=== PATIENT | male | born 1950 | race Caucasian/White ===

== ENCOUNTER 2023-01-01 14:30 | Inpatient (IN) | payer OTHER, MEDICAID ==
[~2023-01-01] VITALS: Ht 180.3 cm; Wt 84.8 kg
[~2023-01-01 14:30] MED LIST: EMPA1TAB5 PO; GLIP10TA21 PO; REPA2TAB PO; SEMA7TAB2; SIMV-345 PO
[2023-01-01 14:45] VITALS: BP_SYST 137; PULSE 63; RESP 18; TEMP 98.3; O2SAT 97
[2023-01-01 15:45] LABS: BASOPHILS # (AUTO) 0.1 K/uL (0.0-0.2); BASOPHILS % (AUTO) 0.7 % (0.0-2.0); EOSINOPHILS # (AUTO) 0.2 K/uL (0.0-0.4); EOSINOPHILS % (AUTO) 2.1 % (0.0-4.0); HEMATOCRIT 43.2 % (36-54); LYMPHOCYTES # (AUTO) 2.2 K/uL (1.0-5.5); LYMPHOCYTES % (AUTO) 27.9 % (20.5-51.5); MEAN CORPUSCULAR HEMOGLOBIN 30 pg (27-31); MEAN CORPUSCULAR HGB CONC 32 % (32-36); MEAN CORPUSCULAR VOLUME 91 fL (79.0-98.0); MONOCYTES # (AUTO) 0.6 K/uL (0.0-1.0); MONOCYTES % (AUTO) 7.9 % (1.7-9.3); NEUTROPHILS # (AUTO) 4.9 K/uL (1.8-7.7); NEUTROPHILS % (AUTO) 61.4 % (40.0-70.0); PLATELET COUNT (AUTO) 221 K/uL (130-430); RED BLOOD CELL COUNT(AUTO) 4.73 MIL/uL (4.2-6.2); RED CELL DISTRIBUTION WIDTH 14.4 % (9.0-15.0); WHITE BLOOD COUNT (AUTO) 7.9 K/uL (4.8-10.8)
[2023-01-01] MEDS ORDERED: ASPIRIN 81 MG TABLET(ECOTRIN) PO ONE (15:45)
[2023-01-01 15:51] LABS: ANION GAP 9 (5-15); CALCIUM 9.2 mg/dL (8.4-11.0); CHLORIDE 100 mmol/L (98-107); CREATININE 1.48 mg/dL (0.55-1.30); GLUCOSE 106 mg/dL (74-106); UREA NITROGEN, BLOOD 30 mg/dL (8-21)
[2023-01-01 15:57] LABS: GFR AFRICAN AMERICAN 60 mL/min (>90)
[2023-01-01 15:58] LABS: ALANINE AMINOTRANSFERASE 16 U/L (12-78); ASPARTATE AMINOTRANSFERASE 14 U/L (10-37)
[2023-01-01 16:01] LABS: PROTHROMBIN TIME 10.4 SECS (9.5-12.5)
[2023-01-01] MEDS ORDERED: HYDR-4039 PO (16:26)
[2023-01-01] MEDS ORDERED: LOSA1TAB40 PO (16:26)
[2023-01-01] MEDS ORDERED: METO-442 PO (16:26)
[2023-01-01] MEDS ORDERED: HYDROcodone/ACETAMIN 5-325 MG TAB (NORCO/ VICODIN) PO PRN (23:30)
[2023-01-01] MEDS ORDERED: ONDANSETRON HCL 4 MG/2 ML VIAL IVP PRN (23:30)
[2023-01-01] MEDS ORDERED: LORazepam 2 MG/ML VIAL IVP PRN (23:30)
[2023-01-01] MEDS ORDERED: ACETAMINOPHEN 325 MG TABLET PO PRN (23:30)
[2023-01-01] MEDS ORDERED: NALOXONE HCL 0.4 MG/ML AMP (NARCAN) IVP PRN ×2 (23:30)
[2023-01-01] MEDS ORDERED: HYDROcodone/ACETAMIN 10-325 MG TAB PO PRN (23:30)
[2023-01-02] VITALS (8 sets, daily range): BP systolic 105–163; PULSE 54–69; RESP 17–18; TEMP 96.7–98.3; O2SAT 97–99
[2023-01-02 05:38] LABS: BASOPHILS % (AUTO) 0.7 % (0.0-2.0); EOSINOPHILS # (AUTO) 0.2 K/uL (0.0-0.4); EOSINOPHILS % (AUTO) 3.2 % (0.0-4.0); HEMATOCRIT 48.3 % (36-54); HEMOGLOBIN 15.4 g/dL (14.0-18.0); LYMPHOCYTES # (AUTO) 1.9 K/uL (1.0-5.5); LYMPHOCYTES % (AUTO) 32.2 % (20.5-51.5); MEAN CORPUSCULAR HEMOGLOBIN 29 pg (27-31); MEAN CORPUSCULAR HGB CONC 32 % (32-36); MEAN CORPUSCULAR VOLUME 92 fL (79.0-98.0); MONOCYTES # (AUTO) 0.5 K/uL (0.0-1.0); MONOCYTES % (AUTO) 8.1 % (1.7-9.3); NEUTROPHILS # (AUTO) 3.4 K/uL (1.8-7.7); NEUTROPHILS % (AUTO) 55.8 % (40.0-70.0); PLATELET COUNT (AUTO) 211 K/uL (130-430); RED BLOOD CELL COUNT(AUTO) 5.26 MIL/uL (4.2-6.2); RED CELL DISTRIBUTION WIDTH 14.8 % (9.0-15.0)
[2023-01-02 05:49] LABS: CALCIUM 9.4 mg/dL (8.4-11.0); CREATININE 1.44 mg/dL (0.55-1.30); PHOSPHORUS 4.4 mg/dL (2.7-4.5)
[2023-01-02] MEDS: NORMAL SALINE 5 ML DISP.SYRIN IVF SCH ×3 (06:43→22:53)
[2023-01-02] MEDS ORDERED: EMPAGLIFLOZIN PO SCH (09:00)
[2023-01-02] MEDS ORDERED: [UNRECOGNIZED DRUG - OTHER] PO SCH (09:00)
[2023-01-02] MEDS ORDERED: glipiZIDE XL 5 MG TAB ( GLUCOTROL XL) PO SCH (09:00)
[2023-01-02] MEDS ORDERED: METFORMIN HCL PO SCH (09:00)
[2023-01-02] MEDS: REPAGLINIDE 1 MG TABLET (PRANDIN) PO SCH (09:25)
[2023-01-02] MEDS ORDERED: ASPIRIN 81 MG TAB.CHEW PO ONE (09:30)
[2023-01-02] MEDS: HYDROCHLOROTHIAZIDE 25 MG TABLET (HCTZ) PO SCH (09:31)
[2023-01-02] MEDS: hydrALAZINE HCL 25 MG TABLET PO SCH ×3 (09:31→21:00)
[2023-01-02] MEDS: LOSARTAN POTASSIUM 50 MG TABLET (COZAAR) PO SCH (09:32)
[2023-01-02] MEDS: METOPROLOL TARTRATE 50 MG TABLET PO SCH (09:32)
[2023-01-02 11:39] LABS: BILIRUBIN,URINE NEGATIVE (NEGATIVE); BLOOD, URINE NEGATIVE (NEGATIVE); CLARITY/URINE CLEAR (CLEAR); COLOR,URINE YELLOW (YELLOW); GLUCOSE,URINE 3+ (NEGATIVE); KETONES,URINE NEGATIVE (NEGATIVE); LEUKOCYTE ESTERASE ,URINE NEGATIVE (NEGATIVE); NITRITE, URINE NEGATIVE (NEGATIVE); PH,URINE 5.5 (5.0-8.0); PROTEIN URINE NEGATIVE (NEGATIVE)
[2023-01-02] MEDS: NACL 0.9% 1,000 ML IV SCH ×2 (14:08→23:30)
[2023-01-02 15:52] LABS: RBC,URINE 0-3 /HPF (0-3)
[2023-01-02 15:53] LABS: BACTERIA,URINE None Seen /HPF (None Seen); WBC,URINE 0-3 /HPF (0-3)
[2023-01-02 16:35] LABS: MUCUS,URINE None Seen /LPF (None Seen)
[2023-01-02] MEDS: INSULIN REGULAR, HUMAN 100 UNITS/ML, 3 ML VIAL (humuLIN R) SUBCUT PRN (18:04)
[2023-01-02] MEDS ORDERED: SIMVASTATIN 40 MG TABLET PO SCH (21:00)
[2023-01-02] MEDS: METFORMIN HCL PO SCH (21:00)
[2023-01-02] MEDS: EMPAGLIFLOZIN PO SCH (21:00)
[2023-01-03 01:43] VITALS: BP_SYST 113; PULSE 56; RESP 17; TEMP 96.4; O2SAT 99
[2023-01-03 06:05] LABS: BASOPHILS % (AUTO) 0.6 % (0.0-2.0); EOSINOPHILS # (AUTO) 0.3 K/uL (0.0-0.4); EOSINOPHILS % (AUTO) 3.9 % (0.0-4.0); HEMATOCRIT 46.1 % (36-54); HEMOGLOBIN 14.8 g/dL (14.0-18.0); LYMPHOCYTES # (AUTO) 2.3 K/uL (1.0-5.5); LYMPHOCYTES % (AUTO) 32.8 % (20.5-51.5); MEAN CORPUSCULAR HEMOGLOBIN 30 pg (27-31); MEAN CORPUSCULAR HGB CONC 32 % (32-36); MEAN CORPUSCULAR VOLUME 92 fL (79.0-98.0); MONOCYTES # (AUTO) 0.6 K/uL (0.0-1.0); MONOCYTES % (AUTO) 8.4 % (1.7-9.3); NEUTROPHILS # (AUTO) 3.9 K/uL (1.8-7.7); NEUTROPHILS % (AUTO) 54.3 % (40.0-70.0); PLATELET COUNT (AUTO) 230 K/uL (130-430); RED BLOOD CELL COUNT(AUTO) 5.01 MIL/uL (4.2-6.2); RED CELL DISTRIBUTION WIDTH 14.7 % (9.0-15.0); WHITE BLOOD COUNT (AUTO) 7.1 K/uL (4.8-10.8)
[2023-01-03 06:51] LABS: CREATININE 1.32 mg/dL (0.55-1.30); PHOSPHORUS 3.7 mg/dL (2.7-4.5)
[2023-01-03] MEDS: NORMAL SALINE 5 ML DISP.SYRIN IVF SCH ×2 (07:35→14:28)
[2023-01-03 08:00] VITALS: BP_SYST 134; PULSE 60; RESP 15; TEMP 96.3; O2SAT 97
[2023-01-03] MEDS: METFORMIN HCL PO SCH (09:00)
[2023-01-03] MEDS ORDERED: ASPIRIN 81 MG TAB.CHEW PO SCH (09:00)
[2023-01-03] MEDS: EMPAGLIFLOZIN PO SCH (09:00)
[2023-01-03] MEDS: REPAGLINIDE 1 MG TABLET (PRANDIN) PO SCH (09:14)
[2023-01-03] MEDS: HYDROCHLOROTHIAZIDE 25 MG TABLET (HCTZ) PO SCH (09:14)
[2023-01-03] MEDS: hydrALAZINE HCL 25 MG TABLET PO SCH ×2 (09:15→14:27)
[2023-01-03] MEDS ORDERED: METOPROLOL TARTRATE 50 MG TABLET PO ONE (09:15)
[2023-01-03] MEDS: LOSARTAN POTASSIUM 50 MG TABLET (COZAAR) PO SCH (09:15)
[2023-01-03] MEDS: METOPROLOL TARTRATE 50 MG TABLET PO SCH (09:16)
[2023-01-03] MEDS: NACL 0.9% 1,000 ML IV SCH (09:23)
[2023-01-03] MEDS: INSULIN REGULAR, HUMAN 100 UNITS/ML, 3 ML VIAL (humuLIN R) SUBCUT PRN (11:53)
[2023-01-03 12:00] VITALS: BP_SYST 146; PULSE 58; RESP 18; TEMP 96.9; O2SAT 98
[2023-01-03 13:53] VITALS: BP_SYST 146; PULSE 58; RESP 18; TEMP 96.9; O2SAT 98
[2023-01-03] MEDS ORDERED: ASA81 PO (14:47)
== END 2023-01-03 16:30 | disposition home or self-care (01) | DRG 69 ==
LOC: SED 14:30 → STU 16:44
PROVIDERS: ADMIT Preventive Medicine Preventive Medicine/Occupational Environmental Medicine; ATTEND Preventive Medicine Preventive Medicine/Occupational Environmental Medicine
DX: G45.9 Transient cerebral ischemic attack, unspecified (principal); R47.01 Aphasia; N17.9 Acute kidney failure, unspecified; I12.9 Hypertensive chronic kidney disease with stage 1 through stage 4 chronic kidney disease, or unspecified chronic kidney disease; E11.22 Type 2 diabetes mellitus with diabetic chronic kidney disease; N18.30 Chronic kidney disease, stage 3 unspecified; E78.5 Hyperlipidemia, unspecified; Z90.49 Acquired absence of other specified parts of digestive tract; Z89.429 Acquired absence of other toe(s), unspecified side; Z83.3 Family history of diabetes mellitus; Z79.899 Other long term (current) drug therapy; Z79.4 Long term (current) use of insulin
CPT/HCPCS: 36415; 70450-TC; 71045; 76376; 76770; 80048; 80053; 80061; 81000; 83037; 83735; 83880; 84100; 84484; 85025; 85610-TC; 85730-TC; 93005; 93306; 93880; 97110-GP; 97116-GP; 97530-GP; 99285; G0378; J7030

== ENCOUNTER 2023-03-05 18:20 | Emergency (ER) | payer OTHER, MEDICAID ==
[~2023-03-05] VITALS: Ht 180.3 cm; Wt 83.5 kg
[~2023-03-05 18:20] MED LIST changes: +ASA81 PO; +HYDR-4039 PO; +LOSA1TAB40 PO; +METO-442 PO
[2023-03-05] MEDS ORDERED: EMPA1TAB7 PO (18:34)
[2023-03-05] MEDS ORDERED: SEMA14TA2 PO (18:34)
[2023-03-05] MEDS ORDERED: SIMV80TA2 PO (18:34)
[2023-03-05] MEDS ORDERED: REPA1TAB3 PO (18:35)
[2023-03-05] MEDS ORDERED: NACL 0.9% 1,000 ML IV ONE (18:45)
[2023-03-05 18:46] VITALS: BP_SYST 116; PULSE 66; RESP 16; TEMP 98.4; O2SAT 95
[2023-03-05 19:50] LABS: BASOPHILS # (AUTO) 0.1 K/uL (0.0-0.2); BASOPHILS % (AUTO) 0.7 % (0.0-2.0); EOSINOPHILS # (AUTO) 0.1 K/uL (0.0-0.4); HEMATOCRIT 40.5 % (36-54); HEMOGLOBIN 13.1 g/dL (14.0-18.0); LYMPHOCYTES # (AUTO) 1.4 K/uL (1.0-5.5); LYMPHOCYTES % (AUTO) 17.6 % (20.5-51.5); MEAN CORPUSCULAR HEMOGLOBIN 30 pg (27-31); MEAN CORPUSCULAR HGB CONC 32 % (32-36); MEAN CORPUSCULAR VOLUME 92 fL (79.0-98.0); MONOCYTES # (AUTO) 0.7 K/uL (0.0-1.0); MONOCYTES % (AUTO) 8.9 % (1.7-9.3); NEUTROPHILS # (AUTO) 5.8 K/uL (1.8-7.7); NEUTROPHILS % (AUTO) 71.8 % (40.0-70.0); PLATELET COUNT (AUTO) 184 K/uL (130-430); RED BLOOD CELL COUNT(AUTO) 4.39 MIL/uL (4.2-6.2); RED CELL DISTRIBUTION WIDTH 14.4 % (9.0-15.0); WHITE BLOOD COUNT (AUTO) 8.1 K/uL (4.8-10.8)
[2023-03-05 20:01] LABS: ANION GAP 11 (5-15); CALCIUM 8.3 mg/dL (8.4-11.0); CARBON DIOXIDE 23 mmol/L (23-29); CHLORIDE 103 mmol/L (98-107); CREATININE 1.68 mg/dL (0.55-1.30); GLUCOSE 203 mg/dL (74-106); POTASSIUM 3.6 mmol/L (3.5-5.1); SODIUM SERUM 137 mmol/L (136-145); UREA NITROGEN, BLOOD 27 mg/dL (8-21)
[2023-03-05 20:02] LABS: GFR AFRICAN AMERICAN 52 mL/min (>90); GFR NON AFRICAN-AMERICAN 43 mL/min (>90)
[2023-03-05 21:18] VITALS: BP_SYST 130; PULSE 64; RESP 20; TEMP 97.8; O2SAT 98
== END 2023-03-05 21:18 | disposition home or self-care (01) ==
LOC: SED 18:20
DX: F41.9 Anxiety disorder, unspecified (principal); R42 Dizziness and giddiness; R25.2 Cramp and spasm; E11.9 Type 2 diabetes mellitus without complications; I10 Essential (primary) hypertension; Z79.899 Other long term (current) drug therapy
CPT/HCPCS: 99284; 96360; 70450; 80048; 85025; 84484; 36415; 93005; 76376; J7030

== ENCOUNTER 2023-12-29 05:19 | Inpatient (IN) | payer OTHER, MEDICAID ==
[~2023-12-29] VITALS: Ht 180.3 cm; Wt 86.2 kg
[~2023-12-29 05:19] MED LIST changes: +EMPA1TAB7 PO; -HYDR-4039 PO; +HYDR50TA44 PO; +REPA1TAB3 PO; +SEMA14TA2 PO; +SIMV80TA2 PO
[2023-12-29 05:35] VITALS: BP_SYST 159; PULSE 78; RESP 20; TEMP 96; TEMP 98.5; O2SAT 99
[2023-12-29] MEDS: ONDANSETRON 4 MG ODT TAB PO ONE (06:18)
[2023-12-29 07:38] LABS: BASOPHILS % (AUTO) 0.4 % (0.0-2.0); EOSINOPHILS % (AUTO) 0.1 % (0.0-4.0); HEMATOCRIT 49.2 % (36-54); HEMOGLOBIN 16.2 g/dL (14.0-18.0); LYMPHOCYTES # (AUTO) 0.6 K/uL (1.0-5.5); LYMPHOCYTES % (AUTO) 7.5 % (20.5-51.5); MEAN CORPUSCULAR HEMOGLOBIN 30 pg (27-31); MEAN CORPUSCULAR HGB CONC 33 % (32-36); MEAN CORPUSCULAR VOLUME 91 fL (79.0-98.0); MONOCYTES # (AUTO) 0.1 K/uL (0.0-1.0); MONOCYTES % (AUTO) 1.7 % (1.7-9.3); NEUTROPHILS # (AUTO) 7.1 K/uL (1.8-7.7); NEUTROPHILS % (AUTO) 90.3 % (40.0-70.0); PLATELET COUNT (AUTO) 224 K/uL (130-430); RED BLOOD CELL COUNT(AUTO) 5.42 MIL/uL (4.2-6.2); RED CELL DISTRIBUTION WIDTH 14.5 % (9.0-15.0); WHITE BLOOD COUNT (AUTO) 7.9 K/uL (4.8-10.8)
[2023-12-29 07:49] LABS: BILIRUBIN,URINE NEGATIVE (NEGATIVE); CLARITY/URINE CLEAR (CLEAR); COLOR,URINE YELLOW (YELLOW); GLUCOSE,URINE 3+ (NEGATIVE); KETONES,URINE 1+ (NEGATIVE); LEUKOCYTE ESTERASE ,URINE NEGATIVE (NEGATIVE); NITRITE, URINE NEGATIVE (NEGATIVE); PROTEIN URINE 1+ (NEGATIVE); UROBILINOGEN,URINE 0.2 (0.2-1.0)
[2023-12-29 07:50] LABS: BLOOD, URINE TRACE (NEGATIVE)
[2023-12-29] MEDS: DILTIAZEM HCL 60 MG TABLET PO ONE (07:55)
[2023-12-29 07:56] LABS: ALANINE AMINOTRANSFERASE 17 U/L (12-78); ALBUMIN 4.2 g/dL (3.4-4.8); ANION GAP 12 (5-15); ASPARTATE AMINOTRANSFERASE 12 U/L (10-37); CALCIUM 9.7 mg/dL (8.4-11.0); CARBON DIOXIDE 27 mmol/L (23-29); CHLORIDE 100 mmol/L (98-107); CREATININE 1.35 mg/dL (0.55-1.30); GLUCOSE 258 mg/dL (74-106); POTASSIUM 3.5 mmol/L (3.5-5.1); PROTHROMBIN TIME 10.3 SECS (9.5-12.5); SODIUM SERUM 139 mmol/L (136-145); TOTAL BILIRUBIN 1.1 mg/dL (0.0-1.0); TOTAL PROTEIN, SERUM 8.2 g/dL (6.4-8.3); UREA NITROGEN, BLOOD 19 mg/dL (8-21)
[2023-12-29 08:01] LABS: BACTERIA,URINE RARE /HPF (None Seen); MUCUS,URINE None Seen /LPF (None Seen); RBC,URINE 0-3 /HPF (0-3); WBC,URINE 0-3 /HPF (0-3)
[2023-12-29 08:07] LABS: AMYLASE 49 U/L (0-100); BILIRUBIN,DIRECT 0.3 mg/dL (0.0-0.3); LACTATE DEHYDROGENASE 163 U/L (85-227); LIPASE 16 U/L (16-77)
[2023-12-29 09:04] LABS: ACETONE, SERUM NEGATIVE (NEGATIVE)
[2023-12-29] MEDS: NACL 0.9% 1,000 ML IV ONE ×2 (11:43→15:50)
[2023-12-29] MEDS: NACL 0.9% 1,000 ML IV SCH (15:18)
[2023-12-29 16:50] LABS: THYROID STIMULATING HORMONE 0.83 uIu/mL (0.36-3.74)
[2023-12-29] MEDS ORDERED: DEXTROSE 50% JECT 50 ML DISP.SYRIN IVP PRN (17:30)
[2023-12-29] MEDS: ENOXAPARIN SODIUM 40 MG/0.4 ML SYRINGE SUBCUT ONE (18:09)
[2023-12-29] MEDS: LR 1,000 ML IV SCH (18:09)
[2023-12-29] MEDS: ASPIRIN 81 MG TAB.CHEW PO ONE (18:10)
[2023-12-29] MEDS: METOPROLOL TARTRATE 50 MG TABLET PO ONE ×2 (18:10→18:51)
[2023-12-29] MEDS: DIGOXIN 0.25 MG TABLET PO ONE (18:10)
[2023-12-29] MEDS: PANTOPRAZOLE SODIUM 40 MG/VIAL (PROTONIX) ONE (18:57)
[2023-12-29] MEDS: METOCLOPRAMIDE HCL 10 MG/2 ML VIAL IVP ONE (19:03)
[2023-12-29 20:00] VITALS: BP_SYST 138; PULSE 62; RESP 16; RESP 18; TEMP 97.1; O2SAT 95
[2023-12-29] MEDS: PANTOPRAZOLE SODIUM 40 MG in NS 50 ML IV SCH (20:52)
[2023-12-29] MEDS: glipiZIDE XL 5 MG TAB ( GLUCOTROL XL) PO SCH (21:00)
[2023-12-29] MEDS: METOPROLOL TARTRATE 50 MG TABLET PO SCH (21:00)
[2023-12-29] MEDS: hydrALAZINE HCL 25 MG TABLET PO SCH (21:00)
[2023-12-29] MEDS ORDERED: APIXABAN 2.5 MG TABLET PO SCH (21:00)
[2023-12-29 21:55] LABS: BASOPHILS % (AUTO) 0.3 % (0.0-2.0); HEMATOCRIT 47.9 % (36-54); LYMPHOCYTES # (AUTO) 0.4 K/uL (1.0-5.5); MEAN CORPUSCULAR HEMOGLOBIN 30 pg (27-31); MEAN CORPUSCULAR HGB CONC 33 % (32-36); MEAN CORPUSCULAR VOLUME 91 fL (79.0-98.0); MONOCYTES # (AUTO) 0.4 K/uL (0.0-1.0); MONOCYTES % (AUTO) 3.7 % (1.7-9.3); NEUTROPHILS # (AUTO) 9.8 K/uL (1.8-7.7); PLATELET COUNT (AUTO) 251 K/uL (130-430); RED BLOOD CELL COUNT(AUTO) 5.29 MIL/uL (4.2-6.2); RED CELL DISTRIBUTION WIDTH 14.9 % (9.0-15.0); WHITE BLOOD COUNT (AUTO) 10.6 K/uL (4.8-10.8)
[2023-12-29 21:58] LABS: ANION GAP 9 (5-15); CALCIUM 8.8 mg/dL (8.4-11.0); CARBON DIOXIDE 27 mmol/L (23-29); CHLORIDE 104 mmol/L (98-107); CREATININE 1.35 mg/dL (0.55-1.30); GLUCOSE 243 mg/dL (74-106); POTASSIUM 4.1 mmol/L (3.5-5.1); SODIUM SERUM 140 mmol/L (136-145); UREA NITROGEN, BLOOD 19 mg/dL (8-21)
[2023-12-29] MEDS: INSULIN REGULAR, HUMAN 100 UNITS/ML, 3 ML VIAL (humuLIN R) SUBCUT PRN (22:26)
[2023-12-29] MEDS: PANTOPRAZOLE SODIUM 80 MG in NS 100 ML IVP ONE (23:27)
[2023-12-30] VITALS: BP_SYST 147; PULSE 60; RESP 18; TEMP 97.4; O2SAT 96
[2023-12-30 04:49] LABS: HEMOGLOBIN 15.3 g/dL (14.0-18.0); LYMPHOCYTES # (AUTO) 0.9 K/uL (1.0-5.5); LYMPHOCYTES % (AUTO) 7.5 % (20.5-51.5); MEAN CORPUSCULAR HEMOGLOBIN 30 pg (27-31); MEAN CORPUSCULAR HGB CONC 33 % (32-36); MEAN CORPUSCULAR VOLUME 92 fL (79.0-98.0); MONOCYTES # (AUTO) 0.8 K/uL (0.0-1.0); MONOCYTES % (AUTO) 6.2 % (1.7-9.3); NEUTROPHILS # (AUTO) 10.6 K/uL (1.8-7.7); NEUTROPHILS % (AUTO) 86.3 % (40.0-70.0); PLATELET COUNT (AUTO) 258 K/uL (130-430); RED BLOOD CELL COUNT(AUTO) 5.13 MIL/uL (4.2-6.2); RED CELL DISTRIBUTION WIDTH 14.7 % (9.0-15.0); WHITE BLOOD COUNT (AUTO) 12.3 K/uL (4.8-10.8)
[2023-12-30 05:18] LABS: ALANINE AMINOTRANSFERASE 14 U/L (12-78); ALBUMIN 3.3 g/dL (3.4-4.8); ANION GAP 7 (5-15); ASPARTATE AMINOTRANSFERASE 15 U/L (10-37); CALCIUM 8.9 mg/dL (8.4-11.0); CARBON DIOXIDE 29 mmol/L (23-29); CHLORIDE 106 mmol/L (98-107); CREATININE 1.25 mg/dL (0.55-1.30); FREE T4 (FREE THYROXINE) 1.2 ng/dl (0.8-1.5); GLUCOSE 195 mg/dL (74-106); POTASSIUM 4.1 mmol/L (3.5-5.1); SODIUM SERUM 142 mmol/L (136-145); THYROID STIMULATING HORMONE 0.51 uIu/mL (0.36-3.74); TOTAL PROTEIN, SERUM 7.2 g/dL (6.4-8.3); UREA NITROGEN, BLOOD 19 mg/dL (8-21)
[2023-12-30 06:58] LABS: CHOLESTEROL 189 mg/dL (<200); HDL CHOLESTEROL 66 mg/dL (>45); TRIGLYCERIDES 83 mg/dL (30-150)
[2023-12-30 08:00] VITALS: BP_SYST 171; PULSE 59; RESP 18; TEMP 98; O2SAT 94
[2023-12-30] MEDS: MEPERIDINE 100 MG INJ. 100 MG/ML VIAL ONE (08:16)
[2023-12-30] MEDS: MIDAZOLAM HCL 5 MG/5 ML VIAL ONE (08:16)
[2023-12-30] MEDS ORDERED: METOPROLOL TARTRATE 50 MG TABLET PO SCH (09:00)
[2023-12-30] MEDS ORDERED: ASPIRIN 81 MG TAB.CHEW PO SCH (09:00)
[2023-12-30] MEDS ORDERED: ENOXAPARIN SODIUM 40 MG/0.4 ML SYRINGE SUBCUT SCH (09:00)
[2023-12-30] MEDS: SIMVASTATIN 40 MG TABLET PO SCH (09:00)
[2023-12-30 12:00] VITALS: BP_SYST 140; PULSE 60; RESP 18; TEMP 98.2; O2SAT 95
[2023-12-30] MEDS: ONDANSETRON HCL 4 MG/2 ML VIAL IVP PRN (15:22)
[2023-12-30 16:00] VITALS: BP_SYST 169; PULSE 61; RESP 18; TEMP 98.6; O2SAT 95
[2023-12-30 20:00] VITALS: BP_SYST 154; PULSE 94; RESP 16; TEMP 98.1
[2023-12-31] VITALS (8 sets, daily range): BP systolic 136–185; PULSE 76–91; RESP 12–18; TEMP 97.9–98.4; O2SAT 92–98
[2023-12-31 05:49] LABS: BASOPHILS % (AUTO) 0.1 % (0.0-2.0); HEMATOCRIT 47.1 % (36-54); HEMOGLOBIN 15.3 g/dL (14.0-18.0); LYMPHOCYTES # (AUTO) 0.7 K/uL (1.0-5.5); LYMPHOCYTES % (AUTO) 5.1 % (20.5-51.5); MEAN CORPUSCULAR HEMOGLOBIN 30 pg (27-31); MEAN CORPUSCULAR HGB CONC 33 % (32-36); MEAN CORPUSCULAR VOLUME 92 fL (79.0-98.0); MONOCYTES % (AUTO) 7.1 % (1.7-9.3); NEUTROPHILS # (AUTO) 12.4 K/uL (1.8-7.7); NEUTROPHILS % (AUTO) 87.7 % (40.0-70.0); PLATELET COUNT (AUTO) 227 K/uL (130-430); RED BLOOD CELL COUNT(AUTO) 5.15 MIL/uL (4.2-6.2); RED CELL DISTRIBUTION WIDTH 14.8 % (9.0-15.0); WHITE BLOOD COUNT (AUTO) 14.1 K/uL (4.8-10.8)
[2023-12-31 05:57] LABS: ANION GAP 10 (5-15); CALCIUM 9.4 mg/dL (8.4-11.0); CARBON DIOXIDE 27 mmol/L (23-29); CHLORIDE 107 mmol/L (98-107); CREATININE 1.02 mg/dL (0.55-1.30); GLUCOSE 169 mg/dL (74-106); POTASSIUM 3.6 mmol/L (3.5-5.1); SODIUM SERUM 144 mmol/L (136-145); UREA NITROGEN, BLOOD 20 mg/dL (8-21)
[2023-12-31] MEDS: AMPICILLIN SODIUM/SULBACTAM NA 3 GM in NS 100 ML IV ONE (13:30)
[2023-12-31] MEDS: AMPICILLIN SODIUM/SULBACTAM NA 3 GM in NS 100 ML IV SCH (17:20)
[2023-12-31] MEDS: PANTOPRAZOLE SODIUM 40 MG/VIAL (PROTONIX) IVP SCH (20:35)
[2023-12-31] MEDS: METOPROLOL TARTRATE 5 MG/5 ML VIAL IVP PRN (20:38)
[2024-01-01] VITALS (11 sets, daily range): BP systolic 142–200; PULSE 72–91; RESP 16–19; TEMP 97–98.9; O2SAT 94–98
[2024-01-01] MEDS: hydrALAZINE HCL 20 MG/ML VIAL IVP PRN (06:38)
[2024-01-01] MEDS: MORPHINE 2 MG/ML INJ. SYRINGE IVP PRN (06:39)
[2024-01-01 07:57] LABS: BASOPHILS % (AUTO) 0.4 % (0.0-2.0); EOSINOPHILS % (AUTO) 0.2 % (0.0-4.0); HEMOGLOBIN 14.8 g/dL (14.0-18.0); LYMPHOCYTES # (AUTO) 1.3 K/uL (1.0-5.5); LYMPHOCYTES % (AUTO) 15.2 % (20.5-51.5); MEAN CORPUSCULAR HEMOGLOBIN 30 pg (27-31); MEAN CORPUSCULAR HGB CONC 33 % (32-36); MEAN CORPUSCULAR VOLUME 92 fL (79.0-98.0); MONOCYTES # (AUTO) 0.7 K/uL (0.0-1.0); MONOCYTES % (AUTO) 8.2 % (1.7-9.3); NEUTROPHILS # (AUTO) 6.4 K/uL (1.8-7.7); PLATELET COUNT (AUTO) 230 K/uL (130-430); RED BLOOD CELL COUNT(AUTO) 4.87 MIL/uL (4.2-6.2)
[2024-01-01 08:26] LABS: WHITE BLOOD COUNT (AUTO) 8.5 K/uL (4.8-10.8)
[2024-01-01 09:12] LABS: ALANINE AMINOTRANSFERASE 16 U/L (12-78); ANION GAP 13 (5-15); ASPARTATE AMINOTRANSFERASE 14 U/L (10-37); CALCIUM 9.4 mg/dL (8.4-11.0); CARBON DIOXIDE 24 mmol/L (23-29); CHLORIDE 107 mmol/L (98-107); CREATININE 1.02 mg/dL (0.55-1.30); GLUCOSE 161 mg/dL (74-106); POTASSIUM 3.9 mmol/L (3.5-5.1); SODIUM SERUM 144 mmol/L (136-145); TOTAL BILIRUBIN 0.9 mg/dL (0.0-1.0); TOTAL PROTEIN, SERUM 7.3 g/dL (6.4-8.3); UREA NITROGEN, BLOOD 24 mg/dL (8-21)
[2024-01-01] MEDS: ASPIRIN 300 MG/SUPP.RECT SUPP RC ONE (11:05)
[2024-01-01] MEDS: ENOXAPARIN SODIUM 40 MG/0.4 ML SYRINGE SUBCUT ONE (11:05)
[2024-01-01] MEDS ORDERED: *PPN PER PHARMACY XX PRN (11:15)
[2024-01-01] MEDS ORDERED: DEXTROSE 50% JECT 50 ML DISP.SYRIN IVP PRN (11:15)
[2024-01-01] MEDS: TPN PERIPHERAL 0.0001 ML, MVI 5 ML, TRACE ELEMENTS 1 ML in PARENTERAL AMINO ACID 8.5 % ... IV SCH (20:46)
[2024-01-01] MEDS: ENOXAPARIN SODIUM 40 MG/0.4 ML SYRINGE SUBCUT SCH (20:49)
[2024-01-01] MEDS: INSULIN REGULAR, HUMAN 100 UNITS/ML, 3 ML VIAL (humuLIN R) SUBCUT PRN (23:17)
[2024-01-02 00:34] VITALS: BP_SYST 138; PULSE 89; RESP 19; TEMP 97.3
[2024-01-02 07:29] LABS: ALANINE AMINOTRANSFERASE 13 U/L (12-78); ALBUMIN 2.7 g/dL (3.4-4.8); ANION GAP 7 (5-15); ASPARTATE AMINOTRANSFERASE 14 U/L (10-37); CARBON DIOXIDE 29 mmol/L (23-29); CHLORIDE 105 mmol/L (98-107); CREATININE 0.94 mg/dL (0.55-1.30); GLUCOSE 175 mg/dL (74-106); PHOSPHORUS 2.1 mg/dL (2.7-4.5); POTASSIUM 3.1 mmol/L (3.5-5.1); SODIUM SERUM 141 mmol/L (136-145); TOTAL PROTEIN, SERUM 6.7 g/dL (6.4-8.3); UREA NITROGEN, BLOOD 23 mg/dL (8-21)
[2024-01-02 07:46] LABS: BASOPHILS % (AUTO) 0.5 % (0.0-2.0); EOSINOPHILS # (AUTO) 0.1 K/uL (0.0-0.4); EOSINOPHILS % (AUTO) 0.8 % (0.0-4.0); HEMATOCRIT 45.5 % (36-54); HEMOGLOBIN 15.1 g/dL (14.0-18.0); LYMPHOCYTES # (AUTO) 1.2 K/uL (1.0-5.5); MEAN CORPUSCULAR HEMOGLOBIN 30 pg (27-31); MEAN CORPUSCULAR HGB CONC 33 % (32-36); MEAN CORPUSCULAR VOLUME 92 fL (79.0-98.0); MONOCYTES # (AUTO) 0.7 K/uL (0.0-1.0); MONOCYTES % (AUTO) 8.2 % (1.7-9.3); NEUTROPHILS # (AUTO) 6.2 K/uL (1.8-7.7); NEUTROPHILS % (AUTO) 75.5 % (40.0-70.0); PLATELET COUNT (AUTO) 237 K/uL (130-430); RED BLOOD CELL COUNT(AUTO) 4.97 MIL/uL (4.2-6.2); RED CELL DISTRIBUTION WIDTH 14.9 % (9.0-15.0); WHITE BLOOD COUNT (AUTO) 8.2 K/uL (4.8-10.8)
[2024-01-02 09:00] VITALS: BP_SYST 175; PULSE 84; RESP 16; TEMP 97; O2SAT 96; O2SAT 97
[2024-01-02] MEDS ORDERED: ENOXAPARIN SODIUM 40 MG/0.4 ML SYRINGE SUBCUT SCH (09:00)
[2024-01-02 09:57] LABS: TRIGLYCERIDES 150 mg/dL (30-150)
[2024-01-02] MEDS: ASPIRIN 300 MG/SUPP.RECT SUPP RC SCH (10:01)
[2024-01-02 12:56] VITALS: BP_SYST 159; PULSE 85; RESP 18; TEMP 97.3; O2SAT 98
[2024-01-02] MEDS: POTASSIUM CHLORIDE 40 MEQ, LIDOCAINE JECT 2% PF 100 MG 50 MG in NS 250 ML IV ONE (13:58)
[2024-01-02 16:14] VITALS: BP_SYST 159; PULSE 87; RESP 18; TEMP 97.8
[2024-01-02 20:03] VITALS: BP_SYST 180; PULSE 88; RESP 20; TEMP 97.7; O2SAT 98
[2024-01-02] MEDS: K PHOS IV SCH (20:33)
[2024-01-02] MEDS: MVI IV SCH (20:33)
[2024-01-02] MEDS: TRACE ELEMENTS IV SCH (20:33)
[2024-01-02] MEDS: [UNRECOGNIZED DRUG - OTHER] IV SCH (20:33)
[2024-01-02] MEDS: TPN PERIPHERAL IV SCH (20:33)
[2024-01-03 00:30] VITALS: BP_SYST 158; PULSE 90; RESP 19; TEMP 98.4; O2SAT 97
[2024-01-03 05:02] LABS: BASOPHILS # (AUTO) 0.1 K/uL (0.0-0.2); BASOPHILS % (AUTO) 0.6 % (0.0-2.0); EOSINOPHILS # (AUTO) 0.2 K/uL (0.0-0.4); EOSINOPHILS % (AUTO) 1.9 % (0.0-4.0); HEMATOCRIT 43.8 % (36-54); HEMOGLOBIN 14.6 g/dL (14.0-18.0); LYMPHOCYTES # (AUTO) 1.4 K/uL (1.0-5.5); LYMPHOCYTES % (AUTO) 17.2 % (20.5-51.5); MEAN CORPUSCULAR HEMOGLOBIN 30 pg (27-31); MEAN CORPUSCULAR HGB CONC 33 % (32-36); MEAN CORPUSCULAR VOLUME 90 fL (79.0-98.0); MONOCYTES # (AUTO) 0.6 K/uL (0.0-1.0); NEUTROPHILS % (AUTO) 73.3 % (40.0-70.0); PLATELET COUNT (AUTO) 283 K/uL (130-430); RED BLOOD CELL COUNT(AUTO) 4.85 MIL/uL (4.2-6.2); RED CELL DISTRIBUTION WIDTH 14.8 % (9.0-15.0); WHITE BLOOD COUNT (AUTO) 8.2 K/uL (4.8-10.8)
[2024-01-03 05:24] LABS: ALANINE AMINOTRANSFERASE 16 U/L (12-78); ALBUMIN 2.5 g/dL (3.4-4.8); ANION GAP 5 (5-15); ASPARTATE AMINOTRANSFERASE 16 U/L (10-37); CALCIUM 8.8 mg/dL (8.4-11.0); CARBON DIOXIDE 32 mmol/L (23-29); CHLORIDE 106 mmol/L (98-107); CREATININE 0.78 mg/dL (0.55-1.30); GLUCOSE 188 mg/dL (74-106); PHOSPHORUS 1.9 mg/dL (2.7-4.5); POTASSIUM 3.4 mmol/L (3.5-5.1); SODIUM SERUM 143 mmol/L (136-145); TOTAL BILIRUBIN 0.9 mg/dL (0.0-1.0); TOTAL PROTEIN, SERUM 6.5 g/dL (6.4-8.3); UREA NITROGEN, BLOOD 22 mg/dL (8-21)
[2024-01-03 11:23] VITALS: BP_SYST 169; PULSE 84; RESP 16; TEMP 97.2; O2SAT 96
[2024-01-03 16:19] VITALS: BP_SYST 168; PULSE 79; RESP 17; TEMP 97.8; O2SAT 99
[2024-01-03 20:00] VITALS: BP_SYST 156; PULSE 85; RESP 18; TEMP 97.8; O2SAT 96
[2024-01-03] MEDS: [UNRECOGNIZED DRUG - OTHER] IV SCH (22:24)
[2024-01-03] MEDS: TRACE ELEMENTS IV SCH (22:24)
[2024-01-03] MEDS: K PHOS IV SCH (22:24)
[2024-01-03] MEDS: TPN PERIPHERAL IV SCH (22:24)
[2024-01-03] MEDS: MVI IV SCH (22:24)
[2024-01-03] MEDS: FAT EMULSIONS 500 ML IV SCH (22:25)
[2024-01-04 00:46] VITALS: BP_SYST 156; PULSE 84; RESP 18; TEMP 98.2; O2SAT 95
[2024-01-04 04:36] LABS: BASOPHILS % (AUTO) 0.6 % (0.0-2.0); EOSINOPHILS # (AUTO) 0.2 K/uL (0.0-0.4); EOSINOPHILS % (AUTO) 2.5 % (0.0-4.0); HEMATOCRIT 44.7 % (36-54); LYMPHOCYTES # (AUTO) 1.5 K/uL (1.0-5.5); LYMPHOCYTES % (AUTO) 19.7 % (20.5-51.5); MEAN CORPUSCULAR HEMOGLOBIN 30 pg (27-31); MEAN CORPUSCULAR HGB CONC 34 % (32-36); MEAN CORPUSCULAR VOLUME 90 fL (79.0-98.0); MONOCYTES # (AUTO) 0.9 K/uL (0.0-1.0); MONOCYTES % (AUTO) 11.5 % (1.7-9.3); NEUTROPHILS % (AUTO) 65.7 % (40.0-70.0); PLATELET COUNT (AUTO) 253 K/uL (130-430); RED BLOOD CELL COUNT(AUTO) 4.95 MIL/uL (4.2-6.2); RED CELL DISTRIBUTION WIDTH 14.8 % (9.0-15.0); WHITE BLOOD COUNT (AUTO) 7.5 K/uL (4.8-10.8)
[2024-01-04 05:01] LABS: ALANINE AMINOTRANSFERASE 13 U/L (12-78); ALBUMIN 2.6 g/dL (3.4-4.8); ANION GAP 2 (5-15); ASPARTATE AMINOTRANSFERASE 17 U/L (10-37); CALCIUM 8.9 mg/dL (8.4-11.0); CARBON DIOXIDE 35 mmol/L (23-29); CHLORIDE 105 mmol/L (98-107); CREATININE 0.78 mg/dL (0.55-1.30); GLUCOSE 192 mg/dL (74-106); PHOSPHORUS 2.5 mg/dL (2.7-4.5); POTASSIUM 3.1 mmol/L (3.5-5.1); SODIUM SERUM 142 mmol/L (136-145); TOTAL BILIRUBIN 0.9 mg/dL (0.0-1.0); TOTAL PROTEIN, SERUM 6.4 g/dL (6.4-8.3); UREA NITROGEN, BLOOD 21 mg/dL (8-21)
[2024-01-04 10:06] VITALS: BP_SYST 173; PULSE 82; RESP 18; TEMP 98.2; O2SAT 96
[2024-01-04 16:24] VITALS: BP_SYST 174; PULSE 66; RESP 18; TEMP 97.3; O2SAT 97
[2024-01-04 20:00] VITALS: BP_SYST 152; PULSE 101; RESP 18; TEMP 98.1; O2SAT 94
[2024-01-04] MEDS: TRACE ELEMENTS IV SCH (21:25)
[2024-01-04] MEDS: TPN PERIPHERAL IV SCH (21:25)
[2024-01-04] MEDS: [UNRECOGNIZED DRUG - OTHER] IV SCH (21:25)
[2024-01-04] MEDS: MVI IV SCH (21:25)
[2024-01-04] MEDS: K PHOS IV SCH (21:25)
[2024-01-05 01:51] VITALS: BP_SYST 120; PULSE 80; RESP 17; TEMP 98.6; O2SAT 96
[2024-01-05 06:39] LABS: BASOPHILS % (AUTO) 0.4 % (0.0-2.0); EOSINOPHILS # (AUTO) 0.2 K/uL (0.0-0.4); EOSINOPHILS % (AUTO) 2.9 % (0.0-4.0); HEMATOCRIT 44.4 % (36-54); HEMOGLOBIN 14.6 g/dL (14.0-18.0); LYMPHOCYTES # (AUTO) 1.4 K/uL (1.0-5.5); LYMPHOCYTES % (AUTO) 23.5 % (20.5-51.5); MEAN CORPUSCULAR HEMOGLOBIN 30 pg (27-31); MEAN CORPUSCULAR HGB CONC 33 % (32-36); MEAN CORPUSCULAR VOLUME 90 fL (79.0-98.0); MONOCYTES # (AUTO) 0.7 K/uL (0.0-1.0); MONOCYTES % (AUTO) 11.3 % (1.7-9.3); NEUTROPHILS # (AUTO) 3.8 K/uL (1.8-7.7); NEUTROPHILS % (AUTO) 61.9 % (40.0-70.0); PLATELET COUNT (AUTO) 226 K/uL (130-430); RED BLOOD CELL COUNT(AUTO) 4.94 MIL/uL (4.2-6.2); RED CELL DISTRIBUTION WIDTH 14.8 % (9.0-15.0); WHITE BLOOD COUNT (AUTO) 6.1 K/uL (4.8-10.8)
[2024-01-05 07:06] LABS: ALANINE AMINOTRANSFERASE 21 U/L (12-78); ALBUMIN 2.5 g/dL (3.4-4.8); ANION GAP 2 (5-15); ASPARTATE AMINOTRANSFERASE 21 U/L (10-37); CALCIUM 8.6 mg/dL (8.4-11.0); CARBON DIOXIDE 34 mmol/L (23-29); CHLORIDE 105 mmol/L (98-107); CREATININE 0.85 mg/dL (0.55-1.30); GLUCOSE 213 mg/dL (74-106); PHOSPHORUS 2.9 mg/dL (2.7-4.5); SODIUM SERUM 141 mmol/L (136-145); TOTAL BILIRUBIN 0.9 mg/dL (0.0-1.0); TOTAL PROTEIN, SERUM 6.4 g/dL (6.4-8.3); UREA NITROGEN, BLOOD 22 mg/dL (8-21)
[2024-01-05 08:00] VITALS: O2SAT 97
[2024-01-05 11:35] LABS: TRIGLYCERIDES 150 mg/dL (30-150)
[2024-01-05 12:34] VITALS: BP_SYST 134; PULSE 90; RESP 18; TEMP 98.4; O2SAT 98
[2024-01-05] MEDS: METOCLOPRAMIDE HCL 10 MG/2 ML VIAL IVP PRN (13:21)
[2024-01-05 16:11] VITALS: BP_SYST 127; PULSE 85; RESP 17; TEMP 98.5; O2SAT 97
[2024-01-05 20:00] VITALS: BP_SYST 182; PULSE 71; RESP 20; TEMP 97.9; O2SAT 95
[2024-01-05] MEDS: POTASSIUM CHLORIDE 40 MEQ, LIDOCAINE JECT 2% PF 100 MG 50 MG in NS 250 ML IV ONE (20:14)
[2024-01-05 20:15] VITALS: O2SAT 97
[2024-01-05] MEDS: TPN PERIPHERAL IV SCH (22:30)
[2024-01-05] MEDS: [UNRECOGNIZED DRUG - OTHER] IV SCH (22:30)
[2024-01-05] MEDS: SODIUM CHLORIDE IV SCH (22:30)
[2024-01-05] MEDS: POTASSIUM CHLORIDE IV SCH (22:30)
[2024-01-06] VITALS (7 sets, daily range): BP systolic 126–170; PULSE 71–87; RESP 16–20; TEMP 96.7–98.7; O2SAT 95–97
[2024-01-06] MEDS: ONDANSETRON HCL 4 MG/2 ML VIAL IVP PRN (00:58)
[2024-01-06 04:48] LABS: BASOPHILS % (AUTO) 0.4 % (0.0-2.0); EOSINOPHILS # (AUTO) 0.2 K/uL (0.0-0.4); EOSINOPHILS % (AUTO) 3.4 % (0.0-4.0); HEMATOCRIT 43.4 % (36-54); HEMOGLOBIN 14.6 g/dL (14.0-18.0); LYMPHOCYTES # (AUTO) 1.5 K/uL (1.0-5.5); LYMPHOCYTES % (AUTO) 22.2 % (20.5-51.5); MEAN CORPUSCULAR HEMOGLOBIN 30 pg (27-31); MEAN CORPUSCULAR HGB CONC 34 % (32-36); MEAN CORPUSCULAR VOLUME 90 fL (79.0-98.0); MONOCYTES # (AUTO) 0.7 K/uL (0.0-1.0); MONOCYTES % (AUTO) 10.3 % (1.7-9.3); NEUTROPHILS # (AUTO) 4.4 K/uL (1.8-7.7); NEUTROPHILS % (AUTO) 63.7 % (40.0-70.0); PLATELET COUNT (AUTO) 203 K/uL (130-430); RED BLOOD CELL COUNT(AUTO) 4.82 MIL/uL (4.2-6.2); RED CELL DISTRIBUTION WIDTH 14.5 % (9.0-15.0); WHITE BLOOD COUNT (AUTO) 6.9 K/uL (4.8-10.8)
[2024-01-06 05:38] LABS: ALANINE AMINOTRANSFERASE 27 U/L (12-78); ALBUMIN 2.6 g/dL (3.4-4.8); ANION GAP 5 (5-15); ASPARTATE AMINOTRANSFERASE 31 U/L (10-37); CALCIUM 8.4 mg/dL (8.4-11.0); CARBON DIOXIDE 32 mmol/L (23-29); CHLORIDE 104 mmol/L (98-107); CREATININE 0.79 mg/dL (0.55-1.30); GLUCOSE 215 mg/dL (74-106); PHOSPHORUS 2.8 mg/dL (2.7-4.5); POTASSIUM 3.3 mmol/L (3.5-5.1); SODIUM SERUM 141 mmol/L (136-145); TOTAL BILIRUBIN 0.8 mg/dL (0.0-1.0); TOTAL PROTEIN, SERUM 6.3 g/dL (6.4-8.3); UREA NITROGEN, BLOOD 19 mg/dL (8-21)
[2024-01-06] MEDS: SODIUM CHLORIDE IV SCH (21:47)
[2024-01-06] MEDS: [UNRECOGNIZED DRUG - OTHER] IV SCH (21:47)
[2024-01-06] MEDS: POTASSIUM CHLORIDE IV SCH (21:47)
[2024-01-06] MEDS: TPN PERIPHERAL IV SCH (21:47)
[2024-01-07] VITALS: BP_SYST 124; PULSE 74; RESP 20; TEMP 97.4; O2SAT 100
[2024-01-07 05:24] VITALS: RESP 20; TEMP 97.2; O2SAT 97
[2024-01-07 06:22] LABS: BASOPHILS % (AUTO) 0.5 % (0.0-2.0); EOSINOPHILS # (AUTO) 0.3 K/uL (0.0-0.4); EOSINOPHILS % (AUTO) 3.7 % (0.0-4.0); HEMATOCRIT 41.3 % (36-54); HEMOGLOBIN 13.7 g/dL (14.0-18.0); LYMPHOCYTES # (AUTO) 1.4 K/uL (1.0-5.5); LYMPHOCYTES % (AUTO) 18.3 % (20.5-51.5); MEAN CORPUSCULAR HEMOGLOBIN 30 pg (27-31); MEAN CORPUSCULAR HGB CONC 33 % (32-36); MEAN CORPUSCULAR VOLUME 90 fL (79.0-98.0); MONOCYTES # (AUTO) 0.8 K/uL (0.0-1.0); MONOCYTES % (AUTO) 10.5 % (1.7-9.3); NEUTROPHILS # (AUTO) 5.2 K/uL (1.8-7.7); PLATELET COUNT (AUTO) 214 K/uL (130-430); RED BLOOD CELL COUNT(AUTO) 4.59 MIL/uL (4.2-6.2); RED CELL DISTRIBUTION WIDTH 14.8 % (9.0-15.0); WHITE BLOOD COUNT (AUTO) 7.8 K/uL (4.8-10.8)
[2024-01-07 06:28] LABS: PROTHROMBIN TIME 10.6 SECS (9.5-12.5)
[2024-01-07 06:43] LABS: ALANINE AMINOTRANSFERASE 35 U/L (12-78); ALBUMIN 2.6 g/dL (3.4-4.8); ANION GAP 5 (5-15); ASPARTATE AMINOTRANSFERASE 27 U/L (10-37); CALCIUM 8.2 mg/dL (8.4-11.0); CARBON DIOXIDE 32 mmol/L (23-29); CHLORIDE 103 mmol/L (98-107); CREATININE 0.83 mg/dL (0.55-1.30); GLUCOSE 235 mg/dL (74-106); PHOSPHORUS 3.3 mg/dL (2.7-4.5); POTASSIUM 3.2 mmol/L (3.5-5.1); SODIUM SERUM 140 mmol/L (136-145); TOTAL PROTEIN, SERUM 6.2 g/dL (6.4-8.3); UREA NITROGEN, BLOOD 19 mg/dL (8-21)
[2024-01-07 08:00] VITALS: BP_SYST 140; PULSE 71; RESP 18; TEMP 97.4; O2SAT 97
[2024-01-07] MEDS ORDERED: MIDAZOLAM HCL 5 MG/5 ML VIAL ONE (10:40)
[2024-01-07] MEDS ORDERED: fentaNYL CITRATE/PF 100 MCG/2 ML AMP ONE (10:40)
[2024-01-07] MEDS: CEFAZOLIN 1 GM IVPB PREMIX 50 ML IV ONE (11:37)
[2024-01-07] MEDS ORDERED: COMMUNICATION ORDER XX ONE (12:45)
[2024-01-07] MEDS ORDERED: FAT EMULSIONS 250 ML IV SCH ×2 (13:16→21:00)
[2024-01-07] MEDS ORDERED: POTASSIUM CHLORIDE 20 MEQ/PKT PACKET PO ONE (14:00)
[2024-01-07] MEDS: POTASSIUM CHLORIDE 40 MEQ, LIDOCAINE JECT 2% PF 100 MG 50 MG in NS 250 ML IV ONE (17:02)
[2024-01-07 17:37] VITALS: BP_SYST 160; PULSE 66; RESP 14; TEMP 98.3; O2SAT 95
[2024-01-07 19:00] VITALS: O2SAT 96
[2024-01-07 20:00] VITALS: BP_SYST 155; PULSE 70; RESP 18; TEMP 98.2; O2SAT 96
[2024-01-07] MEDS: D5LR 1,000 ML IV SCH (20:46)
[2024-01-07] MEDS ORDERED: [UNRECOGNIZED DRUG - OTHER] IV SCH (21:00)
[2024-01-07] MEDS ORDERED: SODIUM CHLORIDE IV SCH (21:00)
[2024-01-07] MEDS ORDERED: TPN PERIPHERAL IV SCH (21:00)
[2024-01-07] MEDS ORDERED: POTASSIUM CHLORIDE IV SCH (21:00)
[2024-01-08] VITALS: BP_SYST 118; PULSE 62; RESP 19; TEMP 98; O2SAT 96
[2024-01-08 05:52] LABS: ALANINE AMINOTRANSFERASE 30 U/L (12-78); ALBUMIN 2.4 g/dL (3.4-4.8); ANION GAP 5 (5-15); ASPARTATE AMINOTRANSFERASE 22 U/L (10-37); CALCIUM 8.3 mg/dL (8.4-11.0); CARBON DIOXIDE 29 mmol/L (23-29); CHLORIDE 104 mmol/L (98-107); CREATININE 0.83 mg/dL (0.55-1.30); GLUCOSE 184 mg/dL (74-106); PHOSPHORUS 2.6 mg/dL (2.7-4.5); POTASSIUM 3.8 mmol/L (3.5-5.1); SODIUM SERUM 138 mmol/L (136-145); TOTAL BILIRUBIN 0.7 mg/dL (0.0-1.0); TOTAL PROTEIN, SERUM 5.8 g/dL (6.4-8.3); UREA NITROGEN, BLOOD 19 mg/dL (8-21)
[2024-01-08 06:41] LABS: BASOPHILS % (AUTO) 0.3 % (0.0-2.0); EOSINOPHILS # (AUTO) 0.3 K/uL (0.0-0.4); EOSINOPHILS % (AUTO) 3.7 % (0.0-4.0); HEMATOCRIT 38.6 % (36-54); HEMOGLOBIN 12.6 g/dL (14.0-18.0); LYMPHOCYTES # (AUTO) 1.5 K/uL (1.0-5.5); LYMPHOCYTES % (AUTO) 17.8 % (20.5-51.5); MEAN CORPUSCULAR HEMOGLOBIN 29 pg (27-31); MEAN CORPUSCULAR HGB CONC 33 % (32-36); MEAN CORPUSCULAR VOLUME 90 fL (79.0-98.0); MONOCYTES # (AUTO) 0.8 K/uL (0.0-1.0); MONOCYTES % (AUTO) 9.4 % (1.7-9.3); NEUTROPHILS # (AUTO) 5.8 K/uL (1.8-7.7); NEUTROPHILS % (AUTO) 68.8 % (40.0-70.0); PLATELET COUNT (AUTO) 198 K/uL (130-430); RED BLOOD CELL COUNT(AUTO) 4.29 MIL/uL (4.2-6.2); RED CELL DISTRIBUTION WIDTH 14.5 % (9.0-15.0); WHITE BLOOD COUNT (AUTO) 8.5 K/uL (4.8-10.8)
[2024-01-08 07:53] LABS: TRIGLYCERIDES 124 mg/dL (30-150)
[2024-01-08 08:17] VITALS: BP_SYST 149; PULSE 93; RESP 20; TEMP 97.4; O2SAT 100
[2024-01-08] MEDS ORDERED: APIXABAN 2.5 MG TABLET PO SCH (09:00)
[2024-01-08 09:55] VITALS: O2SAT 100
[2024-01-08 12:46] VITALS: BP_SYST 135; PULSE 84; RESP 19; TEMP 97.6; O2SAT 97
[2024-01-08 16:20] VITALS: BP_SYST 142; PULSE 89; RESP 20; TEMP 97.5; O2SAT 99
[2024-01-08] MEDS: metFORMIN HCL 500 MG TABLET PO SCH (17:59)
[2024-01-08 19:00] VITALS: O2SAT 95
[2024-01-08] MEDS: MULTIVITAMINS TAB 1 TABLET GT SCH (21:05)
[2024-01-08] MEDS: FAMOTIDINE 20 MG TABLET GT SCH (21:09)
[2024-01-08] MEDS: APIXABAN 2.5 MG TABLET PO SCH (21:10)
[2024-01-08] MEDS: hydrALAZINE HCL 25 MG TABLET GT SCH (21:12)
[2024-01-08] MEDS: METOPROLOL TARTRATE 50 MG TABLET GT SCH (21:16)
[2024-01-09] VITALS (7 sets, daily range): BP systolic 124–152; PULSE 61–67; RESP 17–18; TEMP 97.4–97.7; O2SAT 92–97
[2024-01-09] MEDS: SIMVASTATIN 40 MG TABLET GT SCH (08:58)
[2024-01-09 08:59] LABS: BASOPHILS % (AUTO) 0.4 % (0.0-2.0); EOSINOPHILS # (AUTO) 0.2 K/uL (0.0-0.4); EOSINOPHILS % (AUTO) 1.7 % (0.0-4.0); HEMATOCRIT 39.7 % (36-54); HEMOGLOBIN 12.9 g/dL (14.0-18.0); LYMPHOCYTES # (AUTO) 1.3 K/uL (1.0-5.5); LYMPHOCYTES % (AUTO) 13.7 % (20.5-51.5); MEAN CORPUSCULAR HEMOGLOBIN 30 pg (27-31); MEAN CORPUSCULAR HGB CONC 33 % (32-36); MEAN CORPUSCULAR VOLUME 91 fL (79.0-98.0); MONOCYTES # (AUTO) 0.6 K/uL (0.0-1.0); MONOCYTES % (AUTO) 6.5 % (1.7-9.3); NEUTROPHILS # (AUTO) 7.4 K/uL (1.8-7.7); NEUTROPHILS % (AUTO) 77.7 % (40.0-70.0); PLATELET COUNT (AUTO) 181 K/uL (130-430); RED BLOOD CELL COUNT(AUTO) 4.37 MIL/uL (4.2-6.2); RED CELL DISTRIBUTION WIDTH 15.1 % (9.0-15.0); WHITE BLOOD COUNT (AUTO) 9.6 K/uL (4.8-10.8)
[2024-01-09] MEDS: ASPIRIN 81 MG TAB.CHEW PO SCH (08:59)
[2024-01-09] MEDS: CHOLECALCIFEROL (VITAMIN D3) 2,000 UNIT TABLET GT SCH (08:59)
[2024-01-09 09:21] LABS: ALANINE AMINOTRANSFERASE 27 U/L (12-78); ALBUMIN 2.2 g/dL (3.4-4.8); ANION GAP 4 (5-15); ASPARTATE AMINOTRANSFERASE 20 U/L (10-37); CALCIUM 8.1 mg/dL (8.4-11.0); CARBON DIOXIDE 29 mmol/L (23-29); CHLORIDE 104 mmol/L (98-107); CREATININE 0.88 mg/dL (0.55-1.30); GLUCOSE 204 mg/dL (74-106); POTASSIUM 3.7 mmol/L (3.5-5.1); SODIUM SERUM 137 mmol/L (136-145); TOTAL BILIRUBIN 0.6 mg/dL (0.0-1.0); TOTAL PROTEIN, SERUM 5.5 g/dL (6.4-8.3); UREA NITROGEN, BLOOD 19 mg/dL (8-21)
[2024-01-09] MEDS ORDERED: APIX5TAB GT (15:46)
[2024-01-09] MEDS ORDERED: FAMO20TA8 GT (15:46)
[2024-01-09] MEDS ORDERED: VITD2000 GT (15:46)
[2024-01-09] MEDS ORDERED: MULT400T13 GT (15:46)
[2024-01-09] MEDS ORDERED: BLOO-1360 XX (15:46)
[2024-01-09] MEDS ORDERED: METF-833 PO (15:46)
[2024-01-09] MEDS: metFORMIN HCL 500 MG TABLET PO SCH (17:06)
[2024-01-09] MEDS: SCOPOLAMINE HYDROBROMIDE 1 MG PATCH .72 H (TRANSDERM-SCOP) TD SCH (21:00)
[2024-01-09] MEDS: IPRATROPIUM/ALBUTEROL SULFATE 3 ML AMPUL.NEB (DUONEB) INH SCH (23:03)
[2024-01-09] MEDS: SCOPOLAMINE HYDROBROMIDE 1 MG PATCH .72 H (TRANSDERM-SCOP) TD ONE (23:32)
[2024-01-10] VITALS (10 sets, daily range): BP systolic 116–165; PULSE 56–78; RESP 18; TEMP 97–98; O2SAT 96–100
[2024-01-10] MEDS: IPRATROPIUM/ALBUTEROL SULFATE 3 ML AMPUL.NEB (DUONEB) INH SCH (15:40)
[2024-01-10] MEDS: APIXABAN 2.5 MG TABLET PO SCH (21:00)
[2024-01-11] VITALS (9 sets, daily range): BP systolic 136–145; PULSE 66–72; RESP 15–18; TEMP 97.1–97.6; O2SAT 96–99
== END 2024-01-11 16:45 | DRG 64 ==
LOC: SED 05:19 → SMU 11:16 → STU 12-30 05:21 → SMU 01-11 13:25
PROVIDERS: ADMIT Internal Medicine; ATTEND Internal Medicine
PROC: 0DB68ZX Excision of Stomach, Via Natural or Artificial Opening Endoscopic, Diagnostic (ICD-10-PCS; 2023-12-30)
PROC: 0DB58ZX Excision of Esophagus, Via Natural or Artificial Opening Endoscopic, Diagnostic (ICD-10-PCS; principal; 2023-12-30 08:00)
PROC: 0DH68UZ Insertion of Feeding Device into Stomach, Via Natural or Artificial Opening Endoscopic (ICD-10-PCS; 2024-01-07)
DX: I63.541 Cerebral infarction due to unspecified occlusion or stenosis of right cerebellar artery (principal); E43 Unspecified severe protein-calorie malnutrition; I48.0 Paroxysmal atrial fibrillation; E86.0 Dehydration; K21.00 Gastro-esophageal reflux disease with esophagitis, without bleeding; K29.70 Gastritis, unspecified, without bleeding; E78.5 Hyperlipidemia, unspecified; I10 Essential (primary) hypertension; I70.0 Atherosclerosis of aorta; E11.21 Type 2 diabetes mellitus with diabetic nephropathy; J02.9 Acute pharyngitis, unspecified; K44.9 Diaphragmatic hernia without obstruction or gangrene; Z83.3 Family history of diabetes mellitus; Z90.49 Acquired absence of other specified parts of digestive tract; Z89.429 Acquired absence of other toe(s), unspecified side; Z79.84 Long term (current) use of oral hypoglycemic drugs; Z79.899 Other long term (current) drug therapy; Z79.82 Long term (current) use of aspirin; Z68.26 Body mass index [BMI] 26.0-26.9, adult; R13.10 Dysphagia, unspecified; R47.01 Aphasia; K52.9 Noninfective gastroenteritis and colitis, unspecified
CPT/HCPCS: 36415; 43239; 43246; 70470; 70492; 70551; 71045; 74220; 80048; 80053; 80061; 80076; 81000; 81001; 81015; 82009; 82150; 82948; 83037; 83605; 83615; 83690; 83735; 84100; 84439; 84443; 84478; 84484; 85025; 85610; 85730; 86886; 86900; 86901; 87081; 88305; 88312; 88313; 92610-GN; 93005; 93306; 94070; 94640; 94760; 97110-GO; 97110-GP; 97112-GO; 97112-GP; 97116-GP; 97530-GO; 97530-GP; 97535-GO; 99285; G0378; J0295; J0360; J0690; J1650; J1815; J2175; J2250; J2270; J2405; J2470; J2765; J3010; J3475; J3480; J3490; J7050; J7131; Q0162; Q9967